=== PATIENT | male | born 1995 | race African-American/Black ===

== ENCOUNTER 2022-04-20 20:57 | Emergency (ER) | payer MEDICAID, SELFPAY ==
[2022-04-20 20:58] VITALS: BP 145/75; PULSE 129; RESP 18; TEMP 37.1; O2SAT 94; BMI 28.8
--- NOTE | 2022-04-20 21:02 | ED.RN ---
PT. STATES I HAVE BEEN HAVING SUICIDAL THOUGHTS AND I ALMOST MADE IT- MY MIND IS MADE UP.
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
[2022-04-20 21:55] LABS: Basophil# 0.02 X10^3/uL; Basophil% 0.4 % (0-1); Eosinophil# 0.01 X10^3/uL; Eosinophils% 0.2 % (0-5); Hemoglobin 15.2 g/dL (13.0-16.5); Lymphocyte % 16.6 % (19-41); Mean Corpuscular Hgb 26.9 pg (27.0-32.0); Mean Corpuscular Volume 81.4 fL (80-94); Mean Platelet Vol. 11.1 fl (6.2-12.0); Monocyte# 0.47 X10^3/uL; Monocyte% 8.7 % (0-10); NRBC Flagged by Analyzer 0 % (0-5); Neutrophil # 3.99 X10^3/uL (2.7-7.7); Neutrophil % 73.7 % (47-70); Platelet Count 214 K/mm3 (150-450); RBC Distribution Width CV 13.3 % (11.6-14.6); RBC Distribution Width SD 39.6 fl (35.1-43.9); Red Blood Count 5.65 M/mm3 (4.6-6.2); White Blood Count 5.4 K/mm3 (4.4-11.0)
[2022-04-20 22:17] LABS: Anion Gap 9 (5-15); BUN 12 mg/dL (7-18); BUN/Creat Ratio 9.8 RATIO (10-20); Calcium,Total 9.5 mg/dL (8.5-10.1); Chloride 107 mmol/L (98-107); Creatinine, Serum 1.22 mg/dL (0.70-1.30); EST Glomerular Filtration Rate 75 mL/min (>60); Est Glom Filt Rate - Afr Amer 91 mL/min (>60); Estimated Creatinine Clearance 93.08 ml/min; Glucose 132 mg/dL (74-106); Potassium 3.3 mmol/L (3.5-5.1); Sodium Level 141 mmol/L (136-145)
[2022-04-20 22:23] LABS: Amphetamine Urine VISTA NEGATIVE (<1000 ng/mL); Barbiturate Urine VISTA NEGATIVE (< 200 ng/mL); Benzodiazepine Urine VISTA NEGATIVE (< 200 ng/mL); Cocaine Urine VISTA NEGATIVE (< 300 ng/mL); Ecstacy Urine VISTA NEGATIVE (< 500 ng/mL); Methadone Urine VISTA NEGATIVE (< 300 ng/mL); PCP Urine VISTA NEGATIVE (< 25 ng/mL); THC Urine VISTA NEGATIVE (< 50 ng/mL); Vista UDS pH Range 5
[2022-04-20] MEDS: Potassium Chloride Oral Tablet 20 MEQ 40 MEQ PO (22:29)
[2022-04-20 23:21] VITALS: RESP 18
[2022-04-21] VITALS (9 sets, daily range): BP systolic 112–134; BP diastolic 67–85; PULSE 68–91; RESP 14–18; O2SAT 97–99
== END 2022-04-21 12:14 ==
PROVIDERS: Emergency Medicine; Emergency Provider Emergency Medicine; Visit Provider Emergency Medicine
DX: T22.212A Burn of second degree of left forearm, initial encounter (principal); X76.XXXA Intentional self-harm by smoke, fire and flames, initial encounter; Y93.89 Activity, other specified; Y92.511 Restaurant or cafe as the place of occurrence of the external cause; E87.6 Hypokalemia; F17.210 Nicotine dependence, cigarettes, uncomplicated
CPT/HCPCS: 80048; 80307; 82077; 85025; 87811; 99285